=== PATIENT | female | born 1985 | race Caucasian/White ===

== ENCOUNTER 2018-12-10 07:06 | Inpatient (IN) ==
[2018-12-09 11:30] LABS: URINE SOURCE VOIDED
[2018-12-09 11:32] LABS: BASO# 0.01 X1000 (0.0-0.2); BASO% 0.1 % (0.0-0.8); EOS# 0.29 X1000 (0.0-0.7); EOS% 3.8 % (0.0-10.0); HEMATOCRIT 45.1 % (37.0-47.0); HEMOGLOBIN 14.8 g/dL (12.0-16.0); IMM GRAN# 0.05 X1000 (0.0-0.04); IMM GRAN% 0.7 % (0.0-0.5); LYMPH# 1.44 X1000 (1.2-3.4); MCHC 32.8 g/dL (33-37); MCV 91.5 FL (81-99); MONO# 0.38 X1000 (0.11-0.59); MPV 10.6 FL (7.4-10.4); NEUT% 71.4 % (42.2-75.2); PLT 175 X1000 (130-400); RBC 4.93 XMIL (4.2-5.4); RDW 13.5 % (11.5-14.5); WBC 7.57 X1000 (4.8-10.8)
[2018-12-09 11:33] LABS: BILIRUBIN URINE NEGATIVE (NEGATIVE); BLOOD URINE NEGATIVE (NEGATIVE); COLOR STRAW; GLUCOSE URINE NEGATIVE (NEGATIVE); KETONE URINE NEGATIVE (NEGATIVE); LEUKOCYTES URINE NEGATIVE (NEGATIVE); NITRITE URINE NEGATIVE (NEGATIVE); PROTEIN URINE NEGATIVE (NEGATIVE); SP GRAVITY URINE 1.006; TURBIDITY URINE CLEAR (CLEAR); UR EPITHELIAL CELLS <10 /HPF (<10); URINE BACTERIA NEGATIVE /HPF; URINE RBC <10 /HPF (<10); URINE WBC <10 /HPF (<10); UROBILINOGEN URINE NORMAL (NORMAL)
[2018-12-09 11:56] LABS: AGAP 16; BUN 10 mg/dL (8-22); CALCIUM 10.1 mg/dL (8.8-10.2); CHLORIDE 98 mmol/L (98-107); COSMO 275; CREATININE 0.6 mg/dL (0.5-0.9); ESTIMATED GFR > 60; GLUCOSE 109 mg/dL (70-104); POTASSIUM 3.6 mmol/L (3.5-5.1); SODIUM 138 mmol/L (136-145); TCO2 24 mmol/L (25-35)
[~2018-12-10 07:06] MED LIST: DIPRIVAN 1% ONE; FENTANYL ONE; VERSED ONE
[2018-12-10] MEDS ORDERED: LR 1,000 ML ONE (07:18)
[2018-12-10] MEDS ORDERED: KEFZOL 1 GM/D5W 1 GM/50 ML IVPB ONE (07:18)
[2018-12-10] MEDS ORDERED: METHYLENE BLUE 0.5% ONE (07:27)
[2018-12-10] MEDS ORDERED: SENSORCAINE 0.25%/EPI 1:200,000 ONE (07:27)
[2018-12-10] MEDS ORDERED: XYLOCAINE 1% ONE (07:28)
[2018-12-10] MEDS ORDERED: DECADRON ONE (07:39)
[2018-12-10] MEDS ORDERED: ZOFRAN ONE (07:39)
[2018-12-10] MEDS: DILAUDID ONE ×4 (09:21→09:40)
[2018-12-10] MEDS ORDERED: D5 1/2 NS 1,000 ML ONE (09:24)
[2018-12-10] MEDS ORDERED: PHENERGAN ONE (09:56)
--- NOTE | 2018-12-10 10:01 | OPERATIVE NOTE ---
PROCEDURE DATE: 12/10/2018 PREOPERATIVE DIAGNOSIS: History of left breast carcinoma with chest wall recurrences and multiple large axillary nodes. PROCEDURE: Excision of several left chest wall masses and axillary dissection. POSTOPERATIVE DIAGNOSIS: Multiple 2 and 3 cm axillary nodes that were grossly positive were removed at the procedure. DESCRIPTION OF PROCEDURE: The patient was brought to the operating room. After satisfactory induction of IV and endotracheal anesthesia, athrombic TEDs and Andrew catheter were placed. Her left chest and axilla were prepped and draped in the appropriate manner. The chest wall recurrences were marked out. An elliptical-type skin incision was performed in the old mastectomy scar with dissection taken down to the fascia of the pectoralis major muscle. Incorporating the chest wall masses, the tissue was swept laterally, including the fascia of the pectoralis. On reaching the axilla, dissection was performed with Metzenbaum scissors and Nancy clamps. There were multiple large axillary nodes. The thoracodorsal and long thoracic nerves were identified and preserved. Multiple 2 and 3 cm nodes were removed from the axilla with electrocautery or hemoclips for hemostasis. One vessel was tied with 3-0 silk. On completion, the specimen was resected away. The wound was irrigated. Two #10 Kurt-Smith drains were placed through the inferior flap incision, hooked to suction, anchored with 0 silk. The subcutaneous was closed with 0 Vicryl and the skin itself with stainless steel clips. Sterile dressing was applied. The patient was awakened and extubated in the operating room. Andrew catheter was removed. She was transferred to recovery. Estimated blood loss was around 100 mL. cc: Dickson Cha MD
[2018-12-10] MEDS ORDERED: ZOFRAN IV PRN (11:00)
[2018-12-10] MEDS: D5 1/2 NS 1,000 ML IV SCH ×3 (13:51→21:49)
[2018-12-10] MEDS: MORPHINE IV PRN ×3 (16:59→21:48)
[2018-12-10] MEDS: PERIDEX MT SCH (21:48)
[2018-12-11] MEDS: D5 1/2 NS 1,000 ML IV SCH ×4 (04:31→20:02)
[2018-12-11] MEDS: MORPHINE IV PRN ×6 (04:31→20:02)
[2018-12-11] MEDS: PERIDEX MT SCH ×2 (08:22→20:02)
[2018-12-11] MEDS: NORCO-10 PO PRN (21:58)
[2018-12-12] MEDS ORDERED: COLACE PO PRN (08:50)
[2018-12-12] MEDS: NORCO-10 PO PRN ×3 (09:04→20:38)
[2018-12-12] MEDS: PERIDEX MT SCH ×2 (09:05→20:37)
[2018-12-12] MEDS: THERA M PLUS PO SCH (09:10)
[2018-12-12] MEDS: MORPHINE IV PRN ×3 (13:32→22:07)
[2018-12-12] MEDS: D5 1/2 NS 1,000 ML IV SCH (18:51)
[2018-12-13] MEDS: NORCO-10 PO PRN (09:27)
[2018-12-13] MEDS: THERA M PLUS PO SCH (09:27)
[2018-12-13] MEDS: PERIDEX MT SCH ×2 (09:28→21:30)
[2018-12-13] MEDS: MORPHINE IV PRN (10:13)
[2018-12-13] MEDS: ADDERALL PO SCH ×2 (12:19→21:30)
[2018-12-13] MEDS: KLONOPIN PO SCH (12:20)
[2018-12-13] MEDS: NEURONTIN PO SCH ×2 (12:20→21:30)
[2018-12-13] MEDS: SUBUTEX SL SCH ×2 (12:20→18:54)
[2018-12-13] MEDS: VITAMIN B-12 PO SCH (12:21)
[2018-12-13] MEDS: ARIMIDEX PO SCH (18:29)
[2018-12-13] MEDS: BIOTIN PO SCH (18:30)
[2018-12-13] MEDS: VITAMIN C PO SCH (18:31)
[2018-12-13] MEDS: D5 1/2 NS 1,000 ML IV SCH (18:31)
[2018-12-14 08:20] VITALS: BP 156/71
[2018-12-14] MEDS: THERA M PLUS PO SCH (08:31)
[2018-12-14] MEDS: BIOTIN PO SCH (08:32)
[2018-12-14] MEDS: ARIMIDEX PO SCH (08:32)
[2018-12-14] MEDS: SUBUTEX SL SCH (08:32)
[2018-12-14] MEDS: ADDERALL PO SCH (08:33)
[2018-12-14] MEDS: VITAMIN B-12 PO SCH (08:33)
[2018-12-14] MEDS: NEURONTIN PO SCH (08:33)
[2018-12-14] MEDS: KLONOPIN PO SCH (08:33)
[2018-12-14] MEDS: VITAMIN C PO SCH (08:33)
[2018-12-14] MEDS: PERIDEX MT SCH (08:34)
--- NOTE | 2018-12-24 14:25 | DISCHARGE SUMMARY ---
ADMISSION DATE: 12/10/2018 DISCHARGE DATE: 12/14/2018 DIAGNOSIS: Recurrent metastatic breast carcinoma. PROCEDURE PERFORMED: Wide excision chest wall metastases+axillary dissection. The patient is a 33-year-old white female, originally diagnosed in [place] with breast carcinoma she had a total mastectomy with sentinel nodes at that time but subsequently has recurred. She has had chemotherapy and has been recommended to have more chemotherapy and radiation but she has declined. Subsequent to this, in the winter, April or May, she had a chest wall recurrence that was excised here with more chemotherapy but she was not terribly compliant after the procedure and again radiation was recommended but she refused. Subsequent to this, she has multiple subcutaneous nodules in the mastectomy scar as well as 2 and 3 cm axillary nodes. She was admitted for the wide excision of the chest wall lesions plus an axillary dissection. Procedure was performed on the day of admission. There were multiple subcutaneous metastatic nodules on the chest wall involving the fascia of the pectoralis muscle and multiple positive nodes. The 2 drains were placed at the time of surgery. The drainage was fairly significant so she remained in the hospital until 12/14 when the drainage slowed down enough to remove the drains and for her to be discharged. She does understand that more chemotherapy and radiation therapy will be recommended. She presently has a port on the left side and the side involving the tumor. The plan is to remove that left port and place a right port in the near future and again with recommendations for further chemo and radiation. cc: Dickson Cha MD MTDD
== END 2018-12-14 12:08 | disposition home or self-care (01) | DRG 827 ==
LOC: 4N 07:06 → OPS 07:06 → OBSVTOIN 10:25
PROVIDERS: ADMIT Surgery; ATTEND Surgery